=== PATIENT | female | born 1995 | race Two or more races ===

== ENCOUNTER 2018-04-20 13:54 | Inpatient (IN) | payer MEDICAID, OTHER ==
[~2018-04-20] VITALS: Ht 160 cm; Wt 63.6 kg
[2018-04-20 14:38] LABS: Urine Bacteria FEW /hpf (None Seen); Urine Blood Negative /uL (Negative); Urine Mucus FEW (None Seen); Urine Specific Gravity 1.029 (1.001-1.035); Urine WBC 7 /hpf (0 - 5)
[2018-04-20 14:42] LABS: Basophils # (auto) 0 uL; Basophils % (auto) 0.2 % (0.0-2.0); Eosinophils # (auto) 0 uL; Eosinophils % (auto) 0.1 % (0.0-7.0); Hematocrit 44.7 % (36.0-46.0); Lymphocytes # (auto) 1.1 uL; Lymphocytes % (auto) 6.4 % (10.0-50.0); Mean Corpuscular Hemoglobin 32.4 pg (28.0-32.0); Mean Corpuscular Hgb Conc. 33.7 g/dL (32.0-36.0); Mean Corpuscular Volume 96.3 fL (80.0-100.0); Monocytes # (auto) 0.9 uL; Neutrophils # (auto) 15.9 uL; Neutrophils % (auto) 88.3 % (37.0-80.0); Platelet Count (auto) 217 10^3/uL (140-450); Red Blood Cells 4.64 10^6/uL (4.0-5.20); Red Cell Distribution Width 13.8 % (11.8-14.3)
[2018-04-20] MEDS ORDERED: SODIUM CHLORIDE 0.9% 1,000 ML IVB ONE (14:47)
[2018-04-20] MEDS ORDERED: PANTOPRAZOLE 40 MG/10 ML VIAL IV STA (14:47)
[2018-04-20] MEDS: MORPHINE SULFATE 4 MG/ML SYR/VIAL IV ONE ×2 (15:00→17:12)
[2018-04-20] MEDS ORDERED: ONDANSETRON HCL 4 MG/2 ML VIAL IV ONE (15:00)
[2018-04-20 15:15] LABS: Albumin 4.6 g/dL (3.4-5.0); BUN/Creatinine Ratio 11.7; Bilirubin, Total 0.7 mg/dL (0.2-1.0); Calcium 9.2 mg/dL (8.5-10.1); Magnesium 2.1 mg/dL (1.6-2.6); Potassium 4.1 mmol/L (3.5-5.1); Total Protein 8.5 g/dL (6.4-8.2)
[2018-04-20] MEDS: SODIUM CHLORIDE 0.9% 1,000 ML IV SCH (15:53)
[2018-04-20] MEDS ORDERED: MORPHINE SULF INJ 2 MG/ML SYRINGE 1ML IV PRN ×2 (16:00)
[2018-04-20] MEDS ORDERED: ONDANSETRON HCL 4 MG/2 ML VIAL IV PRN (16:00)
[2018-04-20] MEDS ORDERED: TEMAZEPAM 15 MG CAP PO PRN (16:00)
[2018-04-20] MEDS ORDERED: HYDROcodone-ACET 5/325MG TAB PO PRN (16:00)
[2018-04-20] MEDS ORDERED: cefTRIAXone 1GM/10ml IVPUSH 10 ML IV ONE (16:00)
[2018-04-20] MEDS ORDERED: ACETAMINOPHEN 500 MG TAB PO PRN (16:00)
[2018-04-20] MEDS ORDERED: NITROGLYCERIN 0.4 MG SL TAB SL PRN (16:00)
[2018-04-20] MEDS ORDERED: LORazepam 0.5 MG TAB PO PRN (16:00)
[2018-04-20 17:20] VITALS: BP 99/65
[2018-04-20 20:00] VITALS: BP 95/51
[2018-04-20 21:09] LABS: Alcohol, Urine < 3.0 mg/dL (0-5); Amphetamine Screen, Urine NEGATIVE (NEGATIVE); Barbiturate Scree,Urine NEGATIVE (NEGATIVE); Benzodiazephine Screen, Urine NEGATIVE (NEGATIVE); Cannabinoid Screen, Urine POSITIVE (NEGATIVE); Cocaine Screen, Urine NEGATIVE (NEGATIVE); Opiate Scree,Urine NEGATIVE (NEGATIVE); Phencyclidine Screen, Urine NEGATIVE (NEGATIVE)
[2018-04-20 21:33] VITALS: BP 95/51
[2018-04-20] MEDS: PANTOPRAZOLE 40 MG TAB PO SCH (21:53)
[2018-04-21] MEDS: SODIUM CHLORIDE 0.9% 1,000 ML IV SCH ×2 (04:32→11:53)
[2018-04-21 05:21] VITALS: BP 101/47
[2018-04-21 05:48] LABS: Basophils # (auto) 0 uL; Basophils % (auto) 0.2 % (0.0-2.0); Eosinophils # (auto) 0 uL; Eosinophils % (auto) 0.6 % (0.0-7.0); Hematocrit 40.6 % (36.0-46.0); Hemoglobin 13.7 g/dL (12.2-16.2); Lymphocytes # (auto) 1.5 uL; Lymphocytes % (auto) 19.7 % (10.0-50.0); Mean Corpuscular Hemoglobin 32.6 pg (28.0-32.0); Mean Corpuscular Hgb Conc. 33.7 g/dL (32.0-36.0); Mean Corpuscular Volume 96.5 fL (80.0-100.0); Monocytes # (auto) 0.6 uL; Neutrophils # (auto) 5.5 uL; Neutrophils % (auto) 71.5 % (37.0-80.0); Nucleated Red Blood Cells % 0.1 %; Platelet Count (auto) 181 10^3/uL (140-450); Red Blood Cells 4.21 10^6/uL (4.0-5.20); Red Cell Distribution Width 13.7 % (11.8-14.3); White Blood Cell 7.6 10^3/uL (4.4-10.8)
[2018-04-21 06:15] LABS: Albumin 3.5 g/dL (3.4-5.0); BUN/Creatinine Ratio 12.2; Calcium 8.1 mg/dL (8.5-10.1); Potassium 3.8 mmol/L (3.5-5.1); Total Protein 6.6 g/dL (6.4-8.2)
[2018-04-21] MEDS ORDERED: cefTRIAXone 1GM/10ml IVPUSH 10 ML IV SCH (09:00)
[2018-04-21 09:53] VITALS: BP 95/59
[2018-04-21] MEDS ORDERED: FAMOTIDINE (10MG/ML) 2ML VL IV SCH (10:00)
[2018-04-21] MEDS: PANTOPRAZOLE 40 MG TAB PO SCH (10:32)
[2018-04-21 13:03] VITALS: BP 128/74
[2018-04-21 13:15] VITALS: BP 98/57
== END 2018-04-21 14:18 | disposition home or self-care (01) | DRG 249 ==
LOC: ER 14:08 → TELE 14:09 → TELE-CENTR 17:20
PROVIDERS: ADMIT Internal Medicine; ATTEND Internal Medicine
DX: A08.4 Viral intestinal infection, unspecified (principal); R65.10 Systemic inflammatory response syndrome (SIRS) of non-infectious origin without acute organ dysfunction; G43.A1 Cyclical vomiting, in migraine, intractable; K29.70 Gastritis, unspecified, without bleeding
CPT/HCPCS: 36415; 71045; 74176; 76705; 80053; 80307; 81001; 82150; 83690; 83735; 85025; 85652; 87040; 87086; 87088; 87186; 94761; 96361; 96374; 96375; C9113; J0696; J2405